=== PATIENT | male | born 1930 | race Caucasian/White ===

== ENCOUNTER 2017-11-12 11:18 | Emergency (ER) | payer OTHER, MEDICAID ==
[~2017-11-12] VITALS: Ht 160 cm; Wt 59.0 kg
[~2017-11-12 11:18] MED LIST: ASA81 PO; CARV6.2554 PO; CHOL500037 PO; CLOP75TA2 PO; FERR-57 PO; FOLI-43 PO; INSU10VI4 SUBCUT; IPRA4AER INH; LINA5TAB2 PO; LISI-600 PO; PRO40 PO; SIMV10TA6 PO
[2017-11-12 11:20] VITALS: BP_SYST 153
[2017-11-12 11:58] LABS: BASOPHILS % (AUTO) 0.4 % (0.0-2.0); EOSINOPHILS % (AUTO) 0.3 % (0.0-4.0); HEMATOCRIT 40.3 % (36-54); HEMOGLOBIN 13.4 g/dL (14.0-18.0); LYMPHOCYTES % (AUTO) 8.1 % (20.5-51.5); MEAN CORPUSCULAR HEMOGLOBIN 29 pg (27-31); MEAN CORPUSCULAR HGB CONC 33 % (32-36); MEAN CORPUSCULAR VOLUME 87 fL (79.0-98.0); MONOCYTES # (AUTO) 1.2 K/uL (0.0-1.0); MONOCYTES % (AUTO) 10.3 % (1.7-9.3); NEUTROPHILS # (AUTO) 9.6 K/uL (1.8-7.7); NEUTROPHILS % (AUTO) 80.9 % (40.0-70.0); PLATELET COUNT (AUTO) 261 K/uL (130-430); RED BLOOD CELL COUNT(AUTO) 4.63 MIL/uL (4.2-6.2); RED CELL DISTRIBUTION WIDTH 13.2 % (9.0-15.0); WHITE BLOOD COUNT (AUTO) 11.8 K/uL (4.8-10.8)
[2017-11-12] MEDS ORDERED: SPIR25TA4 PO (11:59)
[2017-11-12] MEDS ORDERED: NPH,100V SUBCUT (11:59)
[2017-11-12] MEDS ORDERED: DIGO125T79 PO (11:59)
[2017-11-12] MEDS ORDERED: INSU10VI4 SUBCUT (11:59)
[2017-11-12] MEDS ORDERED: HYDR-3698 PO (11:59)
[2017-11-12] MEDS ORDERED: CHOL500037 PO (11:59)
[2017-11-12] MEDS ORDERED: ALEN10TA6 PO (11:59)
[2017-11-12] MEDS ORDERED: FURO-150 PO (11:59)
[2017-11-12 12:08] LABS: ANION GAP 4 (5-15); CALCIUM 9.2 mg/dL (8.4-11.0); CHLORIDE 101 mmol/L (98-107); CREATININE 0.78 mg/dL (0.55-1.30); GLUCOSE 212 mg/dL (70-99); POTASSIUM 4.1 mmol/L (3.5-5.1); SODIUM SERUM 136 mmol/L (136-145); UREA NITROGEN, BLOOD 18 mg/dL (8-21)
[2017-11-12 12:13] LABS: ALANINE AMINOTRANSFERASE 24 U/L (12-78); ALBUMIN 3.6 g/dL (3.4-4.8); ASPARTATE AMINOTRANSFERASE 20 U/L (10-37); LIPASE 46 U/L (73-393); TOTAL BILIRUBIN 0.9 mg/dL (0.0-1.0)
[2017-11-12 12:16] LABS: BILIRUBIN,URINE NEGATIVE (NEGATIVE); BLOOD, URINE 1+ (NEGATIVE); CLARITY/URINE CLEAR (CLEAR); COLOR,URINE YELLOW (YELLOW); GLUCOSE,URINE 1+ (NEGATIVE); KETONES,URINE NEGATIVE (NEGATIVE); LEUKOCYTE ESTERASE ,URINE NEGATIVE (NEGATIVE); NITRITE, URINE NEGATIVE (NEGATIVE); PROTEIN URINE 1+ (NEGATIVE); UROBILINOGEN,URINE 0.2 (0.2-1.0)
[2017-11-12 12:25] LABS: BACTERIA,URINE RARE /HPF (None Seen); MUCUS,URINE 1+ /LPF (None Seen); RBC,URINE 0-3 /HPF (0-3); WBC,URINE 0-3 /HPF (0-3)
[2017-11-12] MEDS ORDERED: cefTRIAXone 1 GM in D5W 50 ML IV ONE (14:45)
[2017-11-12] MEDS ORDERED: cefTRIAXone 1 GM VIAL ONE (15:00)
[2017-11-12 15:50] VITALS: BP_SYST 156
== END 2017-11-12 15:50 | disposition home or self-care (01) ==
LOC: SED 11:18
DX: L03.114 Cellulitis of left upper limb (principal); E11.9 Type 2 diabetes mellitus without complications; I10 Essential (primary) hypertension; J44.9 Chronic obstructive pulmonary disease, unspecified; Z95.5 Presence of coronary angioplasty implant and graft; Z79.82 Long term (current) use of aspirin; Z79.899 Other long term (current) drug therapy
CPT/HCPCS: 36415; 73130; 80053; 81000; 83605; 83690; 83880; 84484; 85025; 87040; 96365; 99285; J0696; J7060

== ENCOUNTER 2021-09-03 19:29 | Inpatient (IN) | payer OTHER, MEDICAID, SELFPAY ==
[~2021-09-03] VITALS: Ht 157.5 cm; Wt 58.5 kg
[~2021-09-03 19:29] MED LIST changes: +ALEN10TA25 PO; +DIGO125T PO; +FURO-150 PO; +HYDR-3698 PO; -LISI-600 PO; +LISI20TA30 PO; +NPH,100V SUBCUT; -SIMV10TA6 PO; +SIMV10TA97 PO; +SPIR25TA6 PO
[2021-09-03 20:03] VITALS: BP_SYST 148
[2021-09-03] MEDS ORDERED: LISI10TA29 PO (20:11)
[2021-09-03] MEDS ORDERED: SIMV20TA2 PO (20:13)
[2021-09-03] MEDS ORDERED: TAMS-11 PO (20:14)
[2021-09-03] MEDS ORDERED: MIRA25TA PO (20:18)
[2021-09-03] MEDS ORDERED: ERGO1250 PO (20:19)
[2021-09-03] MEDS ORDERED: ALBUTEROL SULFATE 0.083% 2.5 MG/3 ML VIAL.NEB INH ONE (21:45)
[2021-09-03 22:33] LABS: BASOPHILS % (AUTO) 0.5 % (0.0-2.0); EOSINOPHILS # (AUTO) 0.1 K/uL (0.0-0.4); EOSINOPHILS % (AUTO) 1.3 % (0.0-4.0); HEMATOCRIT 39.1 % (36-54); HEMOGLOBIN 12.9 g/dL (14.0-18.0); LYMPHOCYTES # (AUTO) 1.1 K/uL (1.0-5.5); MEAN CORPUSCULAR HEMOGLOBIN 28 pg (27-31); MEAN CORPUSCULAR HGB CONC 33 % (32-36); MEAN CORPUSCULAR VOLUME 85 fL (79.0-98.0); MONOCYTES # (AUTO) 0.6 K/uL (0.0-1.0); MONOCYTES % (AUTO) 9.3 % (1.7-9.3); NEUTROPHILS # (AUTO) 4.2 K/uL (1.8-7.7); NEUTROPHILS % (AUTO) 69.9 % (40.0-70.0); PLATELET COUNT (AUTO) 277 K/uL (130-430); RED BLOOD CELL COUNT(AUTO) 4.62 MIL/uL (4.2-6.2)
[2021-09-03 22:52] LABS: ANION GAP 4 (5-15); CALCIUM 8.6 mg/dL (8.4-11.0); CHLORIDE 101 mmol/L (98-107); CREATININE 0.83 mg/dL (0.55-1.30); GLUCOSE 198 mg/dL (70-99); SODIUM SERUM 136 mmol/L (136-145); UREA NITROGEN, BLOOD 24 mg/dL (8-21)
[2021-09-03 22:56] LABS: ALANINE AMINOTRANSFERASE 22 U/L (12-78); ALBUMIN 2.9 g/dL (3.4-4.8); ASPARTATE AMINOTRANSFERASE 20 U/L (10-37); TOTAL BILIRUBIN 0.2 mg/dL (0.0-1.0)
[2021-09-03 23:11] LABS: PROTHROMBIN TIME 10.3 SECS (9.5-12.5)
[2021-09-03] MEDS ORDERED: cefTRIAXone 2 GM VIAL IM ONE (23:30)
[2021-09-03] MEDS ORDERED: DOXYCYCLINE HYCLATE 100 MG in D5W 100 ML IV ONE (23:30)
[2021-09-03] MEDS ORDERED: LevALBUTEROL HCL 1.25 MG/0.5 ML *CONC.* VIAL.NEB (XOPENEX CONC.) INH SCH (23:45)
[2021-09-04] MEDS ORDERED: ALBUTEROL SULFATE 0.083% 2.5 MG/3 ML VIAL.NEB INH ONE
[2021-09-04] MEDS ORDERED: DEXAMETHASONE SOD PHOSPHATE 10 MG/ML VIAL IVP ONE
[2021-09-04] MEDS ORDERED: cefTRIAXone 1 GM in D5W 50 ML IV SCH ×2
[2021-09-04] MEDS ORDERED: DOXYCYCLINE HYCLATE 100 MG in D5W 100 ML IV SCH (00:01)
[2021-09-04] MEDS ORDERED: DOXYCYCLINE HYCLATE 100 MG VIAL IV ONE (00:25)
[2021-09-04] MEDS ORDERED: DEXAMETHASONE SOD PHOSPHATE 10 MG/ML VIAL ONE (00:31)
[2021-09-04 00:53] VITALS: BP_SYST 148
[2021-09-04] MEDS: methylPREDNISolone SOD SUCC 40 MG/ML VIAL IVP SCH ×4 (06:30→23:19)
[2021-09-04] MEDS ORDERED: INSULIN REGULAR, HUMAN 10 UNITS/0.1 ML INJ ONE (06:35)
[2021-09-04] MEDS: INSULIN REGULAR, HUMAN 100 UNITS/ML, 10 ML VIAL (humuLIN R) SUBCUT PRN ×3 (06:38→17:15)
[2021-09-04] MEDS: LevALBUTEROL HCL 1.25 MG/0.5 ML *CONC.* VIAL.NEB (XOPENEX CONC.) INH SCH ×2 (07:10→18:00)
[2021-09-04] MEDS: DOXYCYCLINE HYCLATE 100 MG in D5W 100 ML IV SCH ×2 (09:27→22:12)
[2021-09-04 10:24] VITALS: BP_SYST 172
[2021-09-04] MEDS ORDERED: ALENDRONATE SODIUM 10 MG TABLET (FOSAMAX) PO SCH (14:00)
[2021-09-04] MEDS ORDERED: NON-FORMULARY MEDICATION (Ergocalciferol (Vitamin D2) (Vitamin D2) 1 TAB) PO SCH (14:00)
[2021-09-04] MEDS ORDERED: ASPIRIN 81 MG TAB.CHEW PO ONE (14:30)
[2021-09-04] MEDS ORDERED: CLOPIDOGREL BISULFATE 75 MG TABLET PO ONE (14:30)
[2021-09-04 15:15] VITALS: BP_SYST 127
[2021-09-04 16:45] VITALS: BP_SYST 130
[2021-09-04 20:00] VITALS: BP_SYST 155
[2021-09-04] MEDS ORDERED: INSULIN Lispro Prot/Lispro MIX 75-25, 100 UNITS/ML, 10 ML VIAL SUBCUT SCH (21:00)
[2021-09-04] MEDS: cefTRIAXone 1 GM in D5W 50 ML IV SCH (22:11)
[2021-09-04] MEDS: CARVEDILOL 6.25 MG TABLET (COREG) PO SCH (22:12)
[2021-09-04] MEDS: SPIRONOLACTONE 25 MG TABLET (ALDACTONE) PO SCH (22:13)
[2021-09-04] MEDS: INSULIN NPH/REGULAR 70-30, 100 UNITS/ML, 10 ML VIAL SUBCUT SCH (22:14)
[2021-09-04] MEDS: ENOXAPARIN SODIUM 40 MG/0.4 ML SYRINGE SUBCUT SCH (22:15)
[2021-09-05] VITALS: BP_SYST 147
[2021-09-05] MEDS: methylPREDNISolone SOD SUCC 40 MG/ML VIAL IVP SCH ×3 (05:29→18:23)
[2021-09-05 07:11] LABS: HEMATOCRIT 37.5 % (36-54); HEMOGLOBIN 12.4 g/dL (14.0-18.0); LYMPHOCYTES # (AUTO) 0.6 K/uL (1.0-5.5); LYMPHOCYTES % (AUTO) 5.1 % (20.5-51.5); MEAN CORPUSCULAR HEMOGLOBIN 28 pg (27-31); MEAN CORPUSCULAR HGB CONC 33 % (32-36); MEAN CORPUSCULAR VOLUME 84 fL (79.0-98.0); MONOCYTES # (AUTO) 0.4 K/uL (0.0-1.0); MONOCYTES % (AUTO) 3.2 % (1.7-9.3); NEUTROPHILS # (AUTO) 11.4 K/uL (1.8-7.7); NEUTROPHILS % (AUTO) 91.7 % (40.0-70.0); PLATELET COUNT (AUTO) 282 K/uL (130-430); RED BLOOD CELL COUNT(AUTO) 4.48 MIL/uL (4.2-6.2); RED CELL DISTRIBUTION WIDTH 13.8 % (9.0-15.0); WHITE BLOOD COUNT (AUTO) 12.5 K/uL (4.8-10.8)
[2021-09-05 07:16] LABS: ANION GAP 7 (5-15); CALCIUM 8.4 mg/dL (8.4-11.0); CHLORIDE 102 mmol/L (98-107); CREATININE 0.86 mg/dL (0.55-1.30); GLUCOSE 142 mg/dL (70-99); POTASSIUM 4.2 mmol/L (3.5-5.1); SODIUM SERUM 138 mmol/L (136-145); UREA NITROGEN, BLOOD 29 mg/dL (8-21)
[2021-09-05 08:00] VITALS: BP_SYST 135
[2021-09-05] MEDS: TAMSULOSIN HCL 0.4 MG CAP PO SCH (09:29)
[2021-09-05] MEDS: FERROUS SULFATE 325 MG TABLET.DR PO SCH (09:29)
[2021-09-05] MEDS: SIMVASTATIN 20 MG TABLET PO SCH (09:30)
[2021-09-05] MEDS: ASPIRIN 81 MG TAB.CHEW PO SCH (09:30)
[2021-09-05] MEDS: CLOPIDOGREL BISULFATE 75 MG TABLET PO SCH (09:30)
[2021-09-05] MEDS: FOLIC ACID 1 MG TABLET PO SCH (09:31)
[2021-09-05] MEDS: DOXYCYCLINE HYCLATE 100 MG in D5W 100 ML IV SCH ×2 (09:32→21:47)
[2021-09-05] MEDS: PANTOPRAZOLE SODIUM 40 MG TAB PO SCH (09:48)
[2021-09-05] MEDS: DIGOXIN 0.125 MG TABLET PO SCH (09:49)
[2021-09-05] MEDS: SPIRONOLACTONE 25 MG TABLET (ALDACTONE) PO SCH ×2 (09:49→21:48)
[2021-09-05] MEDS: FUROSEMIDE 20 MG TABLET PO SCH (09:50)
[2021-09-05] MEDS: LISINOPRIL 10 MG TABLET (PRINIVIL) PO SCH (09:51)
[2021-09-05] MEDS: INSULIN NPH/REGULAR 70-30, 100 UNITS/ML, 10 ML VIAL SUBCUT SCH ×2 (10:04→22:02)
[2021-09-05] MEDS: CARVEDILOL 6.25 MG TABLET (COREG) PO SCH ×2 (10:08→21:49)
[2021-09-05] MEDS: LevALBUTEROL HCL 1.25 MG/0.5 ML *CONC.* VIAL.NEB (XOPENEX CONC.) INH SCH ×4 (11:57→18:00)
[2021-09-05 13:08] VITALS: BP_SYST 165
[2021-09-05 17:16] VITALS: BP_SYST 125
[2021-09-05] MEDS: INSULIN REGULAR, HUMAN 100 UNITS/ML, 10 ML VIAL (humuLIN R) SUBCUT PRN (18:32)
[2021-09-05 20:00] VITALS: BP_SYST 127
[2021-09-05] MEDS: MEGESTROL ACETATE 400 MG/10 ML UDC PO SCH (21:46)
[2021-09-05] MEDS: cefTRIAXone 1 GM in D5W 50 ML IV SCH (21:47)
[2021-09-05] MEDS: ENOXAPARIN SODIUM 40 MG/0.4 ML SYRINGE SUBCUT SCH (21:50)
[2021-09-06] MEDS: methylPREDNISolone SOD SUCC 40 MG/ML VIAL IVP SCH ×5 (00:18→23:32)
[2021-09-06 00:39] VITALS: BP_SYST 122
[2021-09-06] MEDS: LevALBUTEROL HCL 1.25 MG/0.5 ML *CONC.* VIAL.NEB (XOPENEX CONC.) INH SCH ×3 (06:00→18:00)
[2021-09-06] MEDS: TAMSULOSIN HCL 0.4 MG CAP PO SCH (08:33)
[2021-09-06] MEDS: FERROUS SULFATE 325 MG TABLET.DR PO SCH (08:33)
[2021-09-06] MEDS: MEGESTROL ACETATE 400 MG/10 ML UDC PO SCH ×2 (08:33→22:24)
[2021-09-06] MEDS: PANTOPRAZOLE SODIUM 40 MG TAB PO SCH (08:33)
[2021-09-06] MEDS: SIMVASTATIN 20 MG TABLET PO SCH (08:33)
[2021-09-06] MEDS: LISINOPRIL 10 MG TABLET (PRINIVIL) PO SCH (08:34)
[2021-09-06] MEDS: FOLIC ACID 1 MG TABLET PO SCH (08:34)
[2021-09-06] MEDS: CLOPIDOGREL BISULFATE 75 MG TABLET PO SCH (08:34)
[2021-09-06] MEDS: SPIRONOLACTONE 25 MG TABLET (ALDACTONE) PO SCH ×2 (08:35→22:25)
[2021-09-06] MEDS: FUROSEMIDE 20 MG TABLET PO SCH (08:36)
[2021-09-06] MEDS: DIGOXIN 0.125 MG TABLET PO SCH (08:36)
[2021-09-06] MEDS: CARVEDILOL 6.25 MG TABLET (COREG) PO SCH ×2 (08:36→22:26)
[2021-09-06] MEDS: ASPIRIN 81 MG TAB.CHEW PO SCH (08:36)
[2021-09-06] MEDS: DOXYCYCLINE HYCLATE 100 MG in D5W 100 ML IV SCH ×2 (08:40→22:30)
[2021-09-06 08:45] VITALS: BP_SYST 159
[2021-09-06] MEDS: INSULIN NPH/REGULAR 70-30, 100 UNITS/ML, 10 ML VIAL SUBCUT SCH ×2 (08:48→21:00)
[2021-09-06 12:00] VITALS: BP_SYST 148
[2021-09-06] MEDS: INSULIN REGULAR, HUMAN 100 UNITS/ML, 10 ML VIAL (humuLIN R) SUBCUT PRN ×2 (12:33→17:36)
[2021-09-06 16:00] VITALS: BP_SYST 150
[2021-09-06 20:00] VITALS: BP_SYST 132
[2021-09-06] MEDS: ENOXAPARIN SODIUM 40 MG/0.4 ML SYRINGE SUBCUT SCH (22:27)
[2021-09-06] MEDS: cefTRIAXone 1 GM in D5W 50 ML IV SCH (22:31)
[2021-09-07] VITALS: BP_SYST 132
[2021-09-07] MEDS: LevALBUTEROL HCL 1.25 MG/0.5 ML *CONC.* VIAL.NEB (XOPENEX CONC.) INH SCH ×4 (01:00→21:52)
[2021-09-07] MEDS: methylPREDNISolone SOD SUCC 40 MG/ML VIAL IVP SCH ×3 (06:32→17:25)
[2021-09-07] MEDS: INSULIN REGULAR, HUMAN 100 UNITS/ML, 10 ML VIAL (humuLIN R) SUBCUT PRN ×4 (06:34→22:23)
[2021-09-07 07:15] LABS: BASOPHILS % (AUTO) 0.1 % (0.0-2.0); HEMATOCRIT 37.1 % (36-54); HEMOGLOBIN 12.3 g/dL (14.0-18.0); LYMPHOCYTES # (AUTO) 0.3 K/uL (1.0-5.5); LYMPHOCYTES % (AUTO) 3.3 % (20.5-51.5); MEAN CORPUSCULAR HEMOGLOBIN 28 pg (27-31); MEAN CORPUSCULAR HGB CONC 33 % (32-36); MEAN CORPUSCULAR VOLUME 84 fL (79.0-98.0); MONOCYTES # (AUTO) 0.2 K/uL (0.0-1.0); MONOCYTES % (AUTO) 2.3 % (1.7-9.3); NEUTROPHILS # (AUTO) 9.7 K/uL (1.8-7.7); NEUTROPHILS % (AUTO) 94.3 % (40.0-70.0); PLATELET COUNT (AUTO) 266 K/uL (130-430); RED BLOOD CELL COUNT(AUTO) 4.42 MIL/uL (4.2-6.2); RED CELL DISTRIBUTION WIDTH 14.5 % (9.0-15.0); WHITE BLOOD COUNT (AUTO) 10.3 K/uL (4.8-10.8)
[2021-09-07 07:43] LABS: ANION GAP 6 (5-15); CHLORIDE 104 mmol/L (98-107); CREATININE 1.15 mg/dL (0.55-1.30); GLUCOSE 257 mg/dL (70-99); SODIUM SERUM 139 mmol/L (136-145); UREA NITROGEN, BLOOD 46 mg/dL (8-21)
[2021-09-07] MEDS: PANTOPRAZOLE SODIUM 40 MG TAB PO SCH (08:14)
[2021-09-07] MEDS: TAMSULOSIN HCL 0.4 MG CAP PO SCH (08:14)
[2021-09-07] MEDS: CLOPIDOGREL BISULFATE 75 MG TABLET PO SCH (08:15)
[2021-09-07] MEDS: SIMVASTATIN 20 MG TABLET PO SCH (08:15)
[2021-09-07] MEDS: FERROUS SULFATE 325 MG TABLET.DR PO SCH (08:15)
[2021-09-07] MEDS: FOLIC ACID 1 MG TABLET PO SCH (08:15)
[2021-09-07] MEDS: FUROSEMIDE 20 MG TABLET PO SCH (08:16)
[2021-09-07] MEDS: LISINOPRIL 10 MG TABLET (PRINIVIL) PO SCH (08:16)
[2021-09-07] MEDS: ASPIRIN 81 MG TAB.CHEW PO SCH (08:16)
[2021-09-07] MEDS: MEGESTROL ACETATE 400 MG/10 ML UDC PO SCH ×2 (08:17→20:20)
[2021-09-07] MEDS: DOXYCYCLINE HYCLATE 100 MG in D5W 100 ML IV SCH ×3 (08:17→22:11)
[2021-09-07] MEDS: CARVEDILOL 6.25 MG TABLET (COREG) PO SCH ×2 (08:17→22:14)
[2021-09-07] MEDS: SPIRONOLACTONE 25 MG TABLET (ALDACTONE) PO SCH ×2 (08:17→22:15)
[2021-09-07] MEDS: DIGOXIN 0.125 MG TABLET PO SCH (08:17)
[2021-09-07] MEDS: INSULIN NPH/REGULAR 70-30, 100 UNITS/ML, 10 ML VIAL SUBCUT SCH ×2 (08:26→22:18)
[2021-09-07 08:30] VITALS: BP_SYST 149
[2021-09-07 12:45] VITALS: BP_SYST 140
[2021-09-07 16:16] VITALS: BP_SYST 131
[2021-09-07 16:38] VITALS: BP_SYST 149
[2021-09-07] MEDS: cefTRIAXone 1 GM in D5W 50 ML IV SCH (20:20)
[2021-09-07 20:30] VITALS: BP_SYST 135
[2021-09-07] MEDS: ENOXAPARIN SODIUM 40 MG/0.4 ML SYRINGE SUBCUT SCH (22:21)
[2021-09-08] MEDS: methylPREDNISolone SOD SUCC 40 MG/ML VIAL IVP SCH ×3 (04:11→16:40)
[2021-09-08] MEDS: INSULIN REGULAR, HUMAN 100 UNITS/ML, 10 ML VIAL (humuLIN R) SUBCUT PRN ×2 (06:35→12:34)
[2021-09-08] MEDS: SIMVASTATIN 20 MG TABLET PO SCH (08:14)
[2021-09-08] MEDS: CLOPIDOGREL BISULFATE 75 MG TABLET PO SCH (08:14)
[2021-09-08] MEDS: FERROUS SULFATE 325 MG TABLET.DR PO SCH (08:14)
[2021-09-08] MEDS: FOLIC ACID 1 MG TABLET PO SCH (08:14)
[2021-09-08] MEDS: TAMSULOSIN HCL 0.4 MG CAP PO SCH (08:14)
[2021-09-08] MEDS: ASPIRIN 81 MG TAB.CHEW PO SCH (08:14)
[2021-09-08] MEDS: PANTOPRAZOLE SODIUM 40 MG TAB PO SCH (08:15)
[2021-09-08] MEDS: MEGESTROL ACETATE 400 MG/10 ML UDC PO SCH (08:15)
[2021-09-08] MEDS: INSULIN NPH/REGULAR 70-30, 100 UNITS/ML, 10 ML VIAL SUBCUT SCH (08:17)
[2021-09-08] MEDS: SPIRONOLACTONE 25 MG TABLET (ALDACTONE) PO SCH (08:23)
[2021-09-08] MEDS: FUROSEMIDE 20 MG TABLET PO SCH (08:23)
[2021-09-08] MEDS: DIGOXIN 0.125 MG TABLET PO SCH (08:24)
[2021-09-08] MEDS: LISINOPRIL 10 MG TABLET (PRINIVIL) PO SCH (08:24)
[2021-09-08] MEDS: CARVEDILOL 6.25 MG TABLET (COREG) PO SCH (08:24)
[2021-09-08 08:30] VITALS: BP_SYST 160
[2021-09-08] MEDS: LevALBUTEROL HCL 1.25 MG/0.5 ML *CONC.* VIAL.NEB (XOPENEX CONC.) INH SCH ×3 (08:51→12:00)
[2021-09-08 12:42] VITALS: BP_SYST 166
[2021-09-08 16:49] VITALS: BP_SYST 155
[2021-09-08 17:15] VITALS: BP_SYST 160
== END 2021-09-08 18:38 | disposition home health service (06) | DRG 193 ==
LOC: SED 19:29 → STU 23:45 → SMU 09-06 22:59
PROVIDERS: ADMIT Family Medicine; ATTEND Family Medicine
DX: J18.9 Pneumonia, unspecified organism (principal); J96.01 Acute respiratory failure with hypoxia; I50.22 Chronic systolic (congestive) heart failure; J44.0 Chronic obstructive pulmonary disease with (acute) lower respiratory infection; Z20.822 Contact with and (suspected) exposure to COVID-19; I11.0 Hypertensive heart disease with heart failure; E11.9 Type 2 diabetes mellitus without complications; Z79.899 Other long term (current) drug therapy; Z79.82 Long term (current) use of aspirin
CPT/HCPCS: 36415; 71045; 80048; 80053; 80162; 82962; 83735; 83880; 84484; 85025; 85610-TC; 85730-TC; 93005; 94640; 94760; 96365; 96372; 96375; 99285; G0378; J0696; J1030; J1100; J1650; J1815; J3490; J7060; J7612; J7613; U0003